=== PATIENT | female | born 1980 ===

== ENCOUNTER 2025-04-10 14:50 | Outpatient (AMB) | payer OTHER, SELFPAY ==
[2025-04-10 15:20] VITALS: BMI 32.6
--- NOTE | 2025-04-10 15:20 | A.PHYSOV ---
Vital Signs 04/10/25 15:20 Height 5 ft Weight 167 lb BMI 32.6 Intake Visit Reasons: Wants ordered lumbar and cervical injections Intake Note: Patient is a 44 year old female here for low back and neck pain for 2 months. 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 The neck pain is localized to the right side and radiates into the right arm in the C6 distribution, associated with moderate right foraminal stenosis at C5-6. The patient has not been on any blood thinners and has previously undergone an injection for lower back pain. The lower back pain radiates to the right leg in the L5 distribution, causing numbness and occasional immobility. The patient has experienced exacerbations following certain activities, with a history of MRI confirming the diagnosis. Patient has failed conservative treatment by completing physical therapy. She has a pain level today of 7/10. She is requesting epidural injection of her cervical and lumbar spine. Pain Description - Onset: Pain in neck and lower back, exacerbated by certain activities. - Quality: Neck pain radiates to the right arm; lower back pain radiates to the right leg with numbness. - Location: Right side of neck and lower back. - Radiation: Neck pain radiates to right arm; lower back pain radiates to right leg. - Exacerbating factors: Certain activities worsen the pain. - Relieving factors: Previous injection provided relief for lower back pain. [facility] Surgical History (Updated 04/10/25 @ 15:23 by Sandy John MA) History of knee replacement Social History (Updated 04/10/25 @ 15:24 by Sandy John MA) Alcohol intake: current Alcohol intake frequency: holidays/special occasions only Patient Tobacco Use Status: Never used Tobacco Use of substances other than those prescribed or required for medical reasons: No Current occupational status: employed Review of Systems Narrative Review of Systems - Musculoskeletal: Reports neck pain radiating to right arm and lower back pain radiating to right leg. - Neurological: Reports numbness in right leg. - General: Denies fever. Physical Exam Exam Exam: Physical Exam Cervical Spine: Examination of the cervical spine, she is tender to the right upper trapezius. She has full range of motion of the cervical spine with pain. Special Tests: Axial Compression test: Negative Spurlings test: Positive right Lhermitte's sign is Negative Upper Extremities: Full range of motion bilateral upper extremities. Equal siebel developer strength bilaterally. Neuro: Sensation: Intact to upper extremities bilateral to light touch Strength C5 (Elbow Flexion): 5/5 on the left and 5/5 on the right. C6 (Elbow Ext): 5/5 on the left and 5/5 on the right. C7 (Elbow Ext): 5/5 on the left and 5/5 on the right. C8 (Finger Flex): 5/5 on the left and 5/5 on the right. T1 (Finger Abd/Add): 5/5 on the left and 5/5 on the right. DTR: C5 (Biceps): Left 2 Right 2 C6 (Brachioradialis): Left 2 Right 2 C7 (Triceps): Left 2 Right 2 Roberts sign: Negative No pathologic clonus. No involuntary movement. Lumbar Spine: Examination of her lumbar spine, there is no visible swelling or deformity. She is tender to lower lumbar facets. She is otherwise nontender. Full range of motion of the lumbar spine. She does have an increase in pain with facet loading. Special Tests: Lhermittes sign was negative Heel Toe walk is normal Left straight leg raise: Negative Right straight leg raise: Negative Special tests Prateek test is negative Ganslen's test is negative SI Joint compression test negative Johana test negative Piriformis stretch is negative Lower Extremities: Full range of motion bilateral lower extremities. No calf pain or edema Neuro: Sensation: Intact to lower extremities bilaterally Strength L2 (Psoas): 5/5 on the left and 5/5 on the right. L3 (Quads): 5/5 on the left and 5/5 on the right. L4 (Ant tibialis): 5/5 on the left and 5/5 on the right. L5 (EHL) 5/5 on the left and 5/5 on the right. S1 (Gastroc): 5/5 on the left and 5/5 on the right. DTR L4: (Patellar) Left 2 Right 2 S1: (Achilles) Left 2 Right 2 Babinski Downgoing No pathologic clonus. No involuntary movement. Vital Signs: BMI result Body Mass Index 32.6 Assessment & Plan Assessment & Plan (1) Cervical radiculopathy: Code(s): M54.12 - Radiculopathy, cervical region Category: Medical (2) Lumbar radiculopathy: Code(s): M54.16 - Radiculopathy, lumbar region Category: Medical Plan Pain Management - Affect: Pain impacts daily activities, causing immobility at times. - Analgesia: Considering injections for pain relief; previous injection for lower back was effective. - Adverse Effects: None reported from previous injections. - Activities of Daily Living: Pain causes difficulty in movement, especially in the right leg. - Aberrant Drug Related Behaviors: None reported. Plan Patient was informed and verbally consented to the use of an ambient scribe for clinic note documentation during this visit. 1. 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 The patient will have the option for sedation during the procedure, and authorization will be obtained from insurance. We discussed the risks, complications and benefits of epidural steroidal injection. She is eager to proceed. 2. Lumbar Radiculopathy Due To Right L5 Nerve Compression An injection targeting the right L5 nerve will be scheduled to address the pain and numbness radiating to the right leg. The patient will discuss sedation options with the anesthesiologist, and insurance authorization will be pursued. In the meantime she will continue her home exercise plan and medications otherwise as prescribed. She has failed conservative treatment. Thank you for allowing me to participate in the care of your patient. Orders: Referrals Physiatry Procedure Notification M54.12 - Radiculopathy, cervical region Physiatry Procedure Notification M54.16 - Radiculopathy, lumbar region Coding Level of Care Code Tele Est Pt Level 4 (02076) Diagnoses Cervical radiculopathy M54.12 Lumbar radiculopathy M54.16
--- OUTSIDE RECORDS SUMMARY | 2025-04-10 18:36 | XMS_ITS ---
Author Name [facility] Organization Unknown History of Medication Use Medication Directions Dispensed Refills Start Date End Date [facility] hydroxyzine HCl 25 mg tablet Take 1 tablet 3 times a day by oral route. 04/13/2023 active pantoprazole 40 mg tablet,delayed release Take 1 tablet every day by oral route for 28 days. 02/25/2023 3 completed pantoprazole 40 mg tablet,delayed release Take 1 tablet every day by oral route for 28 days. 02/25/2023 3 completed hydroxyzine HCl 25 mg tablet TAKE 1 TABLET BY MOUTH THREE TIMES DAILY 4 active cefuroxime axetil 500 mg tablet TAKE 1 TABLET BY MOUTH TWICE DAILY FOR 7 DAYS 3 completed cefuroxime axetil 500 mg tablet TAKE 1 TABLET BY MOUTH TWICE DAILY FOR 7 DAYS 3 completed clindamycin HCl 300 mg capsule TAKE 1 CAPSULE BY MOUTH EVERY 6 HOURS FOR 7 DAYS 3 active clindamycin HCl 300 mg capsule TAKE 1 CAPSULE BY MOUTH EVERY 6 HOURS FOR 7 DAYS 3 completed diazepam 5 mg tablet 3 active diazepam 5 mg tablet 3 completed doxycycline monohydrate 100 mg tablet TAKE 1 TABLET BY MOUTH TWICE DAILY FOR 10 DAYS 3 completed doxycycline monohydrate 100 mg tablet TAKE 1 TABLET BY MOUTH TWICE DAILY FOR 10 DAYS 3 completed hydroxyzine HCl 50 mg tablet TAKE 1 TABLET BY MOUTH EVERY 6 HOURS FOR UP TO 7 DAYS NEEDED FOR ANXIETY 3 completed hydroxyzine HCl 50 mg tablet TAKE 1 TABLET BY MOUTH EVERY 6 HOURS FOR UP TO 7 DAYS NEEDED FOR ANXIETY 3 completed levofloxacin 500 mg tablet TAKE 1 TABLET BY MOUTH PRIOR TO SCHEDULED PROCEDURE 3 completed levofloxacin 500 mg tablet TAKE 1 TABLET BY MOUTH PRIOR TO SCHEDULED PROCEDURE 3 completed nabumetone 750 mg tablet TAKE 1 TABLET BY MOUTH TWICE DAILY 3 completed nabumetone 750 mg tablet TAKE 1 TABLET BY MOUTH TWICE DAILY 3 completed ondansetron 8 mg disintegrating tablet DISSOLVE 1 TABLET UNDER THE TONGUE EVERY 8 HOURS NEEDED FOR NAUSEA 3 active ondansetron 8 mg disintegrating tablet DISSOLVE 1 TABLET UNDER THE TONGUE EVERY 8 HOURS NEEDED FOR NAUSEA 3 completed oxycodone 5 mg tablet TAKE 1 TO 2 TABLETS BY MOUTH EVERY 4 TO 6 HOURS NEEDED FOR PAIN 3 completed oxycodone 5 mg tablet TAKE 1 TO 2 TABLETS BY MOUTH EVERY 4 TO 6 HOURS NEEDED FOR PAIN 3 completed Stimulant Laxative Plus 8.6 mg-50 mg tablet TAKE 1 TABLET BY MOUTH TWICE DAILY 3 completed Stimulant Laxative Plus 8.6 mg-50 mg tablet TAKE 1 TABLET BY MOUTH TWICE DAILY 3 completed aspirin 81 mg tablet,delayed release TAKE 1 TABLET BY MOUTH TWICE DAILY 3 completed acetaminophen 500 mg tablet TAKE 2 TABLETS BY MOUTH EVERY 8 HOURS. MAX OF 3000MG ACETAMINOPHEN PER DAY. active acetaminophen 500 mg tablet TAKE 2 TABLETS BY MOUTH EVERY 8 HOURS. MAX OF 3000MG ACETAMINOPHEN PER DAY. active aspirin 81 mg tablet,delayed release TAKE 1 TABLET BY MOUTH TWICE DAILY active butalbital-acetamino phen-caffeine 50 mg-325 mg-40 mg tablet active meloxicam 15 mg tablet TAKE 1 TABLET BY MOUTH EVERY DAY FOR 15 DAYS active meloxicam 15 mg tablet active methocarbamol 750 mg tablet TAKE 1 TABLET BY MOUTH THREE TIMES DAILY NEEDED FOR MUSCLE SPASMS active methocarbamol 750 mg tablet TAKE 1 TABLET BY MOUTH THREE TIMES DAILY NEEDED FOR MUSCLE SPASMS active mometasone 0.1 % topical ointment active mometasone 0.1 % topical ointment active Allergies Allergen Reaction Severity Comment Documented Date Source Statu s PENICILLAMINE [facility] SULFA (SULFONAMIDE ANTIBIOTICS) [facility] Problems Problem Status Onset Date Problem Type Date of Resoluti on Source Atopic dermatitis active 2023-04-13 ProblemAct [facility] Arthritis of knee active 2023-01-12 ProblemAct [facility] History of total knee arthroplasty active 2023-05-07 ProblemAct [facility] Post traumatic osteoarthritis active 2023-01-12 ProblemAct [facility] Encounters Encounter Type Encounter Reason Primary Diagnosis Location Date Ambulatory [facility] [place] 05/18/2023 Ambulatory [facility] [place] 05/17/2023 Ambulatory [facility] [place] 04/13/2023 Ambulatory [facility] [place] 04/12/2023 Ambulatory [facility] [place] 03/16/2023 Ambulatory [facility] [place] 03/15/2023 Ambulatory ROUTINE Post-traumatic osteoarthritis, unspecified site [facility] 03/02/2023 Ambulatory [facility] [place] 02/25/2023 Ambulatory [facility] [place] 02/22/2023 Ambulatory [facility] [place] 02/04/2023 Ambulatory [facility] [place] 01/12/2023 Ambulatory [facility] [place] 01/12/2023 Ambulatory [facility] [place] 01[facility]11/2023 Ambulatory [facility] [place] 01/11/2023 Ambulatory [facility] [place] 01/08/2023 Ambulatory [facility] [place] 12/16/2022 Ambulatory [facility] [place] 12/16/2022 Ambulatory [facility] [place] 12/16/2022 Ambulatory [facility] [place] 12/16/2022 Ambulatory [facility] [place] 12/16/2022 Ambulatory [facility] [place] 12/16/2022 Care Team Organization Name Specialty Phone Email Start Date End Da te [facility] 202203/02/2023 [facility] 2022
--- OUTSIDE RECORDS SUMMARY | 2025-04-10 18:36 | XMS_ITS | Clinical Summary ---
Author Organization [facility] Address [address] [address] Phone Care Team Providers Care Office Spec Name Role Phone Pcp, Unknown Primary Care Provider Unavailabl e Social History Tobacco Use Types Packs/Day Years Used Date Smoking Tobacco: Never Assessed Education Answer Date Recorded Are you interested in more education? Not on kaitlin e 09/11/2022 Are you concerned about learning? Not on file 09/11/2022 No 09/11/2022 No 09/11/2022 Digital Access Answer Date Recorded No 10/13/2022 No 10/13/2022 Reliable internet access at home? Not on file 10/13/2022 Device with a working camera? Not on file Comments Unknown Sex and Gender Information Value Date Recorded Sex Assigned at Not on file Legal Sex Female 3:45 PM EST Gender Identity Not on file Sexual Orientation Not on file Plan of Treatment Not on file Medical Devices Not on file Care Teams Office Spec Relationship Specialty Start Date End Date Pcp, Unknown PCP - General 03/24/20 Additional Source Comments The information contained in this document represents components of the legal health record. It is not the complete legal health record.[facility]
--- OUTSIDE RECORDS SUMMARY | 2025-04-10 18:36 | XMS_ITS | Clinical Summary ---
Author Organization [facility] Address [address] [place] [address] Phone Care Team Providers Care All Terrain Vehicle Technician Name Role Phone Mee Malone MD Primary Care Provider Allergies Active Allergy Reactions Criticality Noted Date Comments Penicillamine Hives 05/03/2024 Pollen Extracts Runny nose 02/24/2024 Itchy eyes and throat Sulfa (Sulfonamide Antibiotics) Hives Medium 05/11/2006 Medications gabapentin (NEURONTIN) 100 mg capsule Take 1 capsule (100 mg total) by mouth 3 (three) times a day. Active cetirizine (ZyrTEC) 10 mg tablet Take 1 tablet (10 mg total) by mouth 1 (one) time each day. Active mometasone (ELOCON) 0.1 % ointment Apply topically 1 (one) time each day. Active acetaminophen (TYLENOL) 500 mg tablet Take by mouth every 6 (six) hours if needed for mild pain (two tablets daily as needed). Active ibuprofen (ADVIL,MOTRIN) 200 mg tablet Take 1 tablet (200 mg total) by mouth every 6 (six) hours if needed. Active levonorgestreL (MIRENA) 21 mcg/24hr (up to 8 yrs) 52 mg IUD 1 Device (1 each total) by intrauterine route 1 (one) time. Active omeprazole (PriLOSEC) [address] capsule Take 1 capsule (20 mg total) by mouth 1 (one) time each day. Do not crush or chew. 30 each 11 09/21/192025 Active sertraline (ZOLOFT) 50 mg tablet Take 1/2 25 mg tab daily for 1 week then 1 tab 50 mg daily 30 each 1 09/21/19 Active Additional Information Patient not taking.Reported on 04/02/2025 butalbital-maryam taminophen-caf feine (Esgic) 50-325-40 mg per tabletIndicati ons:Chronic migraine with aura without status migrainosus, not intractable Take 1 tablet by mouth every 4 (four) hours if needed for headaches. 30 tablet 04/02/20 25 Active methocarbamoL (ROBAXIN) 750 mg tabletIndicati ons:Lumbar disc herniation,Lum bar spondylosis Take 1 tablet (750 mg total) by mouth 3 (three) times a day. 270 tablet 04/02/20 Active meloxicam (MOBIC) 15 mg tablet Take 1 tablet (15 mg total) by mouth 1 (one) time each day. 03/18/20 23 2024 Discontinued estradioL (ESTRACE) 1 mg tablet Take 1 tablet (1 mg total) by mouth 1 (one) time each day. 90 tablet 3 07/19/19 25 2024 Discontinued estradioL (CLIMARA) 0.0375 mg/[address] 1 patch on the skin 1 (one) time per week. 24 patch 3 09/01/19 25 2024 Discontinued(D iscontinued by another clinician) hydrOXYzine HCL (ATARAX) 25 mg tablet Take 1 tablet (25 mg total) by mouth every 6 (six) hours if needed for anxiety (6-8 hr for anxiety). 60 each 09/21/19 25 2024 Discontinued polyethylene glycol (Golytely) 236-22.74-6.74 -5.86 gram solution Take 4L by mouth once for one dose. May substitue any PEG. Starting at 6PM the night before your procedure drink 1 8oz glasses at your own pace until you complete half of the gallon. Finish 2nd half of the gallon 5 hours before your procedure. 4000 mL 10/04/19 25 2024 Discontinued(T herapy completed) bisacodyL (DULCOLAX) 5 mg EC tablet Take 2 tablets by mouth right before beginning bowel prep. See instructions provided by the office 2 tablet 10/04/19 25 2024 Discontinued(T herapy completed) methocarbamoL (ROBAXIN) 750 mg tablet Take 1 tablet (750 mg total) by mouth 3 (three) times a day. 270 tablet 02/07/202024 Discontinued(R eorder) butalbital-maryam taminophen-caf feine (Esgic) 50-325-40 mg per tablet Take 1 tablet by mouth every 4 (four) hours if needed for headaches. 30 tablet 02/07/202024 Discontinued(R eorder) Active Problems Problem Noted Date Diagnosed Date Colon cancer screening 10/19/2024 Overview (10/19/2024): 11/08---10 yrs History of total knee arthroplasty 05/07/2023 Atopic dermatitis 04/13/2023 Arthritis of knee 01/12/2023 Post-traumatic osteoarthritis 01/12/2023 Lumbar disc herniation 06/17/2021 Lymphadenopathy of head and neck 07/27/2020 Lumbar spondylosis 12/09/2018 Tobacco use disorder 10/05/2014 Anxiety 08/10/2008 Encounters Date Type Department Care Team Description 04/02/2025 10:30 AM EST Office Visit Adult Medicine [facility] [address] [place] [phone] Tiffany Jorge NP Anxiety (Primary Dx); Lumbar disc herniation; Lumbar spondylosis; Skin lesion; Chronic migraine with aura without status migrainosus, not intractable; Encounter for screening mammogram for breast cancer 01/12/2025 Telephone Adult Medicine - [place] [address] [place] [address] Mee Malone MD from Last 3 Months Immunizations Immunization Administration Dates Next Due H1N1 Inj Preservative Free 04/04/2009 Influenza Quadravalent, MDCK , 0.5ml, preservative free (Flucelvax) 6mo and older 05/07/2023,06/12/2021,02/14/2020,2018 Influenza trivalent, with preservative (Fluzone; Afluria) 6mo and older 05/08/2015,04/14/2012,01/30/2009,2006 Td Tetanus diptheria (Tdvax) 7yo and older 05/11/2006 Tdap Tetanus diptheria acell ular pertussis (Boostrix; Adacel) 7yo and older 03/31/2019 Surgical History Surgery Date Site/Laterality Comments ANTERIOR CRUCIATE LIGAMENT REPAIR 1994 Right PROCEDURE:ANTERIOR CRUCIATE LIGAMENT REPAIR LIP RECONSTRUCTION 02/18/2022 PROCEDURE:LIP RECONSTRUCTION;COMMENT:dog bit lower lip with reconstructive surgery TONSILLECTOMY 1983 PROCEDURE:TONSILLECTOMY OTHER SURGICAL HISTORY PROCEDURE: OR UNLISTED PROCEDURE PHARYNX ADENOIDS/TONSILS; COMMENT: at age 5/removal of gland in throat TONSILLECTOMY PROCEDURE: HISTORICAL TONSILLECTOMY KNEE SURGERY 1993 PROCEDURE: HISTORICAL KNEE SURGERY; COMMENT: right knee/ACL Medical History Medical History Date Comments Osteoarthritis DX:Osteoarthriti s History of migraine DX:History o f migraine History of gastroesophageal reflux (GERD) DX:History of gastroesophage al reflux (GERD) Depressive disorder, not els ewhere classified 1991 DX:Depressive disorder, not elsewhere classified; COMMENT: Rx'd with Zoloft Historical Medical DX 12/19 DX:Encount er for insertion or removal of intrauterine contraceptive device; COMMENT: Mirena, due for removal 01/03/2010 Historical Medical DX 09/12/07 DX:HPV (hu man papillomavirus); COMMENT: Pap= ASCUS w/ HRHPV Anxiety 08/10/08 DX:Anxiety Lumbar spondylosis 12/09/2018 DX:Lumbar spo ndylosis Family History Medical History Relation Name Comments Breast cancer Aunt paternal aunt (> 50 for sure) Asthma Brother 1 Damien COPD Father Hypertension Father Other: Father prediabetes Diabetes Maternal Grandfather Colon C A age 75, prostate CA Breast cancer Maternal Grandmother Cancer Mother lung Lung cancer Mother diead age 56, s moker Liver cancer Paternal Grandfather Breast cancer Paternal Grandmother bladde r CA (nonsmoker) (definitely under age 50) Cancer of Small Bowel Neg Hx Colon cancer Neg Hx Kidney cancer Neg Hx Ovarian cancer Neg Hx Pancreatic cancer Neg Hx Uterine cancer Neg Hx Relation Name Status Comments Aunt Brother 1 Damien Alive Brother 2 Alive Father Alive Maternal Grandfather Maternal Grandmother Alive Mother (Age 56) Paternal Grandfather Paternal Grandmother 1987 li graham cancer Son 1 Alive Son 2 Alive Son 3 Alive Social History Tobacco Use Types Packs/Day Years Used Date Smoking Tobacco: Former Cigarettes 1 25 0 05/17/1994 - 05/17/2019 Smokeless Tobacco: Never Alcohol Use Standard Drinks/Week Comments Yes 2 (1 standard drink = 0.6 oz pur e alcohol) Housing Instability Answer Date Recorde d Are you worried that in the next 2 months you may not have stable housing? No 05/04/2024 Food Access & Nutrition Answer Date Rec orded Do you have access to a vari ety of food including fruits and vegetables? Yes 05/04/2024 Access to Healthcare Answer Date Record ed Within the last 3 months, ho w many times did you visit the emergency department for your medical care? 0 05/04/2024 Health Literacy Answer Date Recorded How often do you need to hav e someone help you when you read instructions, pamphlets, or other written material from your doctor or pharmacy? Never 05/04/2024 Caregiver: How often do you need to have someone help you when you read instructions, pamphlets, or other written material from your doctor or pharmacy? Not on file 05/04/2024 Financial Risk Answer Date Recorded How hard is it for you to pa y for the very basics like food, housing, medical care, and air conditioning / heating? Somewhat hard 05/04/2024 Transportation Answer Date Recorded Has the lack of transportati on kept you from meetings, work, or from getting things needed for daily living? No Has the lack of transportati on kept you from medical appointments or from getting medications? No 05/04/2024 Social Isolation Answer Date Recorded How often do you feel lonely or isolated from th ose around you? Never 05/04/2024 Food Risk Answer Date Recorded Within the past 12 months we worried whether our food would run out before we got money to buy more. Never true 05/04/2024 Within the past 12 months th e food we bought just didn't last and we didn't have money to get more. Never true 05/04/2024 Dependent Care Answer Date Recorded Do you need help finding or paying for care for your loved ones. For example, child and family therapist or elderly care for an older adult? No 05/04/2024 Education Answer Date Recorded Do you think completing more education or training, like finishing a GED, going to college, or learning a trade, would be helpful for you? Yes 05/04/2024 Employment and Income Answer Date Recor ded During the last four weeks, have you been actively looking for work? No 05/04/2024 Living Situation Answer Date Recorded What is your living situation? Unrecognized valu e 05/04/2024 Comments No Sex and Gender Information Value Date Recorded Sex Assigned at Not on file Legal Sex Female 10:24 AM EST Gender Identity Not on file Sexual Orientation Not on file Obstetrics History Para Term AB IAB SAB Ectopic Multiple Livin g Live Births 3 Last Filed Vital Signs Vital Sign Reading Time Taken Comments Blood Pressure 116/82 04/02/2025 10:43 AM EST Pulse 72 04/02/2025 10:43 AM EST Temperature 36.8 C (98.2 F) 04/02/2025 10:43 AM EST Respiratory Rate - - Oxygen Saturation 98% 05/09/2024 8:38 AM EST Inhaled Oxygen Concentration - - Weight 77.6 kg (171 lb) 04/02/2025 10:43 AM EST Height 152.4 cm (5') 04/02/2025 10:43 AM EST Body Mass Index 33.4 04/02/2025 10:43 AM EST Plan of Treatment Upcoming Encounters Date Type Department Care Team (Late st Contact Info) Description 04/16/2025 3:30 PM EST [facility]ointment [facility] [address] [phone] Health Maintenance Due Date Last Done Comments Hepatitis B Vaccines (1 of 3 - 19+ 3-dose series) 1997 Hepatitis C Screening 04/25/2022 COVID-19 Vaccine ( season) 2025 05/14/2021, 04/24/2021, 06/08/2020, Additional history exists Influenza Vaccine (#1) 2025 , 06/12/2021, 02/14/2020, Additional history exists Social Influencers of Health Screening 05/04/2025 05/04/2024 Breast Cancer Screening 03/20/2026 03/20/20 24, 03/01/2023, 02/25/2022, Additional history exists Cervical Cancer Screening: HPV 07/18/2029 07/18/2024, 02/04/2018 Cholesterol Screening (Lipid Panel) 09/20/2029 09/20/2024, 07/20/2022 DTaP,Tdap,and Td Vaccines (4 - Td or Tdap) 02/19/2032 02/18/2022, 03/31/2019, 05/11/2006 Colorectal Cancer Screening: Colonoscopy 10/17/2034 10/17/2024, 10/17/2024 RSV Immunization Adult Patients (1 - 1-dose 75+ series) 2053 HIV Screening Completed 02/14/2004 Depression Screening Completed 04/02/2025 HIB Vaccines Aged Out No longer eligi ble based on patient's age to complete this topic HPV Vaccines Aged Out No longer eligi ble based on patient's age to complete this topic Hepatitis A Vaccines Aged Out No long er eligible based on patient's age to complete this topic IPV Vaccines Aged Out No longer eligi ble based on patient's age to complete this topic MMR Vaccines Aged Out No longer eligi ble based on patient's age to complete this topic Meningococcal ACWY Vaccine Aged Out N o longer eligible based on patient's age to complete this topic Meningococcal B Vaccine Aged Out No l onger eligible based on patient's age to complete this topic Pneumococcal Vaccine: Pediatrics (0 to 5 Years) and At-Risk Patients (6 to 49 Years) Aged Out No longer eligible based on patient's age to complete this topic RSV Immunization Patients Under 20 months Aged Out No longer eligible based on patient's age to complete this topic Varicella Vaccines Aged Out No longer eligible based on patient's age to complete this topic Procedures Procedure Name Priority Date/Time Associated Diagnosis Comments EXTERNAL COLONOSCOPY REPORT 10/17/2024 LIPID PANEL WITH REFLEX TO DIRECT LDL Routine 09/20/2024 10:17 AM EDT Adult general medical examination HPV WITH REFLEX GENOTYPE Routine 07/18/2024 3:28 PM EST Encounter for annual physical examination excluding gynecological examination in a patient older than 17 years MG MAMMO DIGITAL SCREENING W RAFITA BILAT Routine 03/20/2024 1:16 PM EST Encounter for screening mammogram for breast cancer HM HIV SCREENING Routine 02/14/2004 from Last 3 Months or Most Recently Relevant to Health Maintenance Results * External Colonoscopy Report (10/17/2024) Anatomical Region Laterality Modality Endoscopy us Provider [facility]~PROCEDURE ORDERABLES Final Result * (ABNORMAL) Lipid panel with reflex to direct LDL (09/20/2024 10:17 AM EDT) Cholesterol 249(H) 0 - 200 mg/dL LAB CHEMISTRY METHOD 09/20/2024 12:34 PM EDT [facility] Triglycerides 190(H) 0 - 150 mg/dL LAB CHEMISTRY METHOD 09/20/2024 12:34 PM EDT [facility] HDL 61 >=40 mg/dL LAB CHEMISTRY METHOD 09/20/2024 12:34 PM EDT [facility] LDL Calculated 150(H) 0 - 100 mg/dL LAB CHEMISTRY METHOD 09/20/2024 12:34 PM EDT [facility] VLDL Cholesterol Spencer 38 mg/dL LAB CHEMISTRY METHOD 09/20/2024 12:34 PM EDT [facility] Non HDL Chol. (LDL+VLDL) 188(H) <145 mg/dL LAB CHEMISTRY METHOD 09/20/2024 12:34 PM EDT [facility] Chol/HDL Ratio 4.1 0.0 - 4.4 LAB CHEMISTRY METHOD 09/20/2024 12:34 PM EDT [facility] Blood Venous blood specimen / Unknown Venipuncture / Unknown 09/20/2024 10:17 AM EDT 09/20/2024 10:17 AM EDT us Tiffany Jorge NP LAB BLOOD ORDERABLES Final Res ult [facility] [address] [place] [address], [place] [phone] * HPV with reflex genotype (07/18/2024 3:28 PM EST) HPV Negative Negative LAB MICROBIOLOGY METHOD 07/19/2024 3:03 PM EST [facility] Brushing Cervix uteri structure / Unknown 07/18/2024 3:28 PM EST 07/19/2024 6:04 AM EST Anjali Smallwood [facility] MOLECULAR DIAGNOSTICS ORD ERABLES Final Result [facility] [address] [place] [address], * MG Mammo Digital Screening w Rafita bilat (03/20/2024 1:16 PM EST) Anatomical Region Laterality Modality Breast Bilateral Mammography 05/11/2024 7:35 AM EST Impressions 05/11/2024 7:41 AM EST No mammographic evidence of malignancy. A negative mammogram in the presence of a clinically suspicious palpable abnormality does not preclude the possibility of malignancy or alter the indications for biopsy. PQRI CPT II 3342F Code 73820, 43377 PQRI 225 CPT II 7025F TISSUE DENSITY: There are scattered areas of fibroglandular density. (BI-RADS category B) IMPRESSION: Benign. BI-RADS CATEGORY: 2 - BENIGN RECOMMENDATION: Screening bilateral mammogram is recommended in 1 year. Mammo Location: [facility], [address] [place] [id number] -------- FINAL REPORT -------- Dictated By: Mikel Dotson Dictated Date: 05/11/2024 07:35 ET Assigned Physician: Mikel Dotson Reviewed and Electronically Signed By: Mikel Dotson Signed Date: 05/11/2024 07:41 ET Workstation ID: [id number] Transcribed By: Self Edit Transcribed Date: 05/11/2024 07:35 ET Narrative 05/11/2024 7:41 AM EST CLINICAL: The patient is a 43 years Female presenting for routine screening mammography. This examination, performed 03/20/2024 is not interpreted until today, 05/11/2024, so that previous outside studies could be obtained. COMPARISON: 07/17/2020 (unilateral right mammogram) and 02/19/2020 (bilateral mammography). TECHNIQUE: Full-field digital mammography of the breasts bilaterally consisting of tomosynthesis in MLO and CC projection is performed in the [employer]ocket[employer] 2000-D unit. Computer aided detection utilizing the iCAD system was utilized. FINDINGS: The breasts are composed of a combination of fatty and fibroglandular elements. Bilateral nodular densities with appearance consistent with benign intramammary lymph nodes are noted. There is no suspicious cluster of microcalcifications, mass, or area of architectural distortion. There is no skin thickening or nipple retraction. Procedure Note Mikel Dotson MD - 05/11/2024 CLINICAL: The patient is a 43 years Female presenting for routinescreening mammography. This examination, performed 03/20/2024 is notinterpreted until today, 05/11/2024, so that previous outside studiescould be obtained. COMPARISON: 07/17/2020 (unilateral right mammogram) and 02/19/2020 (bilateralmammography). TECHNIQUE: Full-field digital mammography of the breasts bilaterallyconsisting of tomosynthesis in MLO and CC projection is performed in the[employer] 2000-D unit. Computer aided detection utilizing the iCADsystem was utilized. FINDINGS: The breasts are composed of a combination of fatty andfibroglandular elements. Bilateral nodular densities with appearanceconsistent with benign intramammary lymph nodes are noted. There is nosuspicious cluster of microcalcifications, mass, or area of architecturaldistortion. There is no skin thickening or nipple retraction. IMPRESSION: No mammographic evidence of malignancy. A negative mammogram in the presence of a clinically suspicious palpableabnormality does not preclude the possibility of malignancy or alter theindications for biopsy. PQRI CPT II 3342F Code 49212, 89804 PQRI 225 CPT II 7025F TISSUE DENSITY: There are scattered areas of fibroglandular density.(BI-RADS category B) IMPRESSION: Benign. BI-RADS CATEGORY: 2 - BENIGN RECOMMENDATION: Screening bilateral mammogram is recommended in 1 year. Mammo Location: [facility], [address] [place] [id number] -------- FINAL REPORT -------- Dictated By: Mikel Dotson Dictated Date: 05/11/2024 07:35 ET Assigned Physician: Mikel Dotson Reviewed and Electronically Signed By: Mikel Dotson Signed Date: 05/11/2024 07:41 ET Workstation ID: [id number] Transcribed By: Self Edit Transcribed Date: 05/11/2024 07:35 ET us Self Referral Sppl IMG BI PROCEDURES Final Resul t * Hm HIV Screening (02/14/2004) HIV Screening Abstracted us Historical Provider HEALTH MAINTENANCE Final Result from Last 3 Months or Most Recently Relevant to Health Maintenance Insurance [facility] Care Teams All Terrain Vehicle Technician Relationship Specialty Start Date End Date Mee Malone MD [address] [place] [phone] PCP - General 07/15/1998
--- OUTSIDE RECORDS SUMMARY | 2025-04-10 18:36 | XMS_ITS | Clinical Summary ---
Author Organization [facility] Address [address] [address] Phone Care Team Providers Care Recruiter Coordinator Name Role Phone Tiffany Jorge Primary Care Provider [phone] Allergies Active Allergy Reactions Criticality Noted Date Comments Penicillamine 05/03/2024 Penicillins Hives Medium 05/11/2006 Childhood No difficulty breathing Sulfa Antibiotics Hives Medium 05/11/2006 Medications omeprazole (PriLOSEC) [address] capsule Take 20 mg by mouth in the morning. 5 09/21/19 26 Active methocarbamol (ROBAXIN) 750 MG tablet TAKE 1 TABLET BY MOUTH THREE TIMES DAILY NEEDED FOR MUSCLE SPASMS 3 Active cetirizine (ZyrTEC) 10 MG tablet Take 10 mg by mouth in the morning. Active ibuprofen (ADVIL,MOTRIN) 200 MG tablet Take 200 mg by mouth every 6 hours as needed Active acetaminophen (TYLENOL) 500 MG tablet TAKE 2 TABLETS BY MOUTH EVERY 8 HOURS. MAX OF 3000MG ACETAMINOPHEN PER DAY. Active butalbital-maryam taminophen-caf feine (FIORICET, ESGIC) 50-325-40 MG per tablet if needed 3 Active Active Problems Problem Noted Date Diagnosed Date Atrophy of kidney 01/10/2025 History of total knee arthroplasty 05/07/2023 Atopic dermatitis 04/13/2023 Post-traumatic osteoarthritis 01/12/2023 Arthritis of knee 01/12/2023 Prolapsed lumbar intervertebral disc 06/17/2021 Head and neck lymphadenopathy 07/27/2020 Lumbar spondylosis 12/09/2018 Family history of malignant neoplasm of breast 0 10/05/2014 Anxiety 08/10/2008 Encounters Date Type Department Care Team Description 01/09/2025 4:15 PM EDT Office Visit [facility] [address] [place] [phone] Adonay Claudio MD Atrophy of kidney (Primary Dx) from Last 3 Months Immunizations Immunization Administration Dates Next Due H1N1 Inj Preservative Free 04/04/2009 Influenza (IM) Preservative Free 015,04/14/2012,01/30/2009, 7 Influenza, MDCK, PF, Quadrivalent 2022,06/12/2021,02/14/2020, 9 Moderna SARS-COV-2 04/24/2021 Pfizer SARS-COV-2 06/08/2020,05/18/2020 Td 05/11/2006 Tdap 03/31/2019 Family History Relation Status Comments Father Alive Mother Social History Tobacco Use Types Packs/Day Years Used Date Smoking Tobacco: Never Alcohol Use Standard Drinks/Week Comments Yes 0 (1 standard drink = 0.6 oz pur e alcohol) Comments Unknown Sex and Gender Information Value Date Recorded Sex Assigned at Not on file Legal Sex Female 12:36 PM EDT Gender Identity Not on file Sexual Orientation Not on file Last Filed Vital Signs Vital Sign Reading Time Taken Comments Blood Pressure 110/70 01/09/2025 4:31 PM EDT Pulse 77 01/09/2025 4:31 PM EDT Temperature - - Respiratory Rate - - Oxygen Saturation 98% 01/09/2025 4:31 PM EDT Inhaled Oxygen Concentration - - Weight 75.7 kg (166 lb 12.8 oz) 01/09/2025 4:31 PM EDT Height - - Body Mass Index - - Plan of Treatment Health Maintenance Due Date Last Done Comments Hepatitis B Vaccine (1 of 3 - 19+ 3-dose series) 1997 Pneumococcal Vaccine: Peds ( 0 to 5 Years) and At-Risk Patients (6 to 49 Years) (1 of 2 - PCV) 1997 Influenza Vaccine (#1) 2025 3, 06/12/2021, 02/14/2020, Additional history exists Insurance [facility] Care Teams Recruiter Coordinator Relationship Specialty Start Date End Date Tiffany Jorge [address] [place] [id number] PCP - General 12/19/24
--- OUTSIDE RECORDS SUMMARY | 2025-04-10 18:36 | XMS_ITS | Clinical Summary ---
Author Organization [facility] Address [address] [place] [address] Care Team Providers Care Environmental Engineering Technician Name Role Phone Joel Malone MD Primary Care Provider [phone] Allergies Active Allergy Reactions Criticality Noted Date Comments Penicillins Hives Medium 07/25/2020 Childhood No difficulty breathing Sulfa Antibiotics Hives Medium 02/17/2023 Medications Medication Sig Dispensed Refills Start Date End Date Status ibuprofen (ADVIL,MOTRIN) 200 MG tablet Take 1 tablet (200 mg total) by mouth every 6 (six) hours as needed for pain. 0 Active methocarbamol (ROBAXIN) 750 MG tablet Take 1 tablet (750 mg total) by mouth 4 (four) times a day. 0 Active levonorgestrel (MIRENA) 20 MCG/24HR IUD 1 each by Intrauterine route once. 0 Active Active Problems Problem Noted Date Diagnosed Date Lymphadenopathy of head and neck 07/27/2020 Family History Medical History Relation Name Comments Asthma Brother Damien COPD Father Twan Hypertension Father Twan Other Father Twan prediabetes Cancer Mother Thalia lung Relation Name Status Comments Brother Damien Alive Father Twan Alive Mother Thalia Social History Tobacco Use Types Packs/Day Years Used Date Smoking Tobacco: Former Cigarettes 1 15 2019 Smokeless Tobacco: Never Alcohol Use Standard Drinks/Week Comments Yes 2 (1 standard drink = 0.6 oz pur e alcohol) a couple times a week Sex and Gender Information Value Date Recorded Sex Assigned at Not on file Gender Identity Not on file Sexual Orientation Not on file Job Start Date Occupation Industry Not on file Not on file Not on file Last Filed Vital Signs Vital Sign Reading Time Taken Comments Blood Pressure 129/89 02/17/2023 10:46 AM EDT Pulse 59 02/17/2023 10:46 AM EDT Temperature 35.8 C (96.4 F) 02/17/2023 10:46 AM EDT Respiratory Rate 16 02/17/2023 10:46 AM EDT Oxygen Saturation 100% 02/17/2023 10:46 AM EDT Inhaled Oxygen Concentration - - Weight 69.9 kg (154 lb) 02/17/2023 10:46 AM EDT Height 153 cm (5' 0.24 ) 02/17/2023 10:46 AM EDT Body Mass Index 29.84 02/17/2023 10:46 AM EDT Plan of Treatment Health Maintenance Due Date Last Done Comments Hepatitis B Vaccines (1 of 3 - 3-dose series) 1978 Hepatitis C Screening 1978 Depression Screening 1990 BMI Counseling 1996 Preventative Health Evaluation 1996 Cervical Cancer Screening (Pap Smear) 1999 Colon Cancer Screening (Colonoscopy) 2023 COVID-19 Vaccine ( season) 2025 06/08/2020, 05/18/2020 Influenza Vaccine (#1) 2025 2, 02/14/2020, 03/31/2019, Additional history exists DTap / Tdap / Td (2 - Td or Tdap) 03/31/2029 03/31/2019 Pneumococcal Vaccine Aged Out No long er eligible based on patient's age to complete this topic RSV Ped < 20 months Aged Out No longe r eligible based on patient's age to complete this topic Care Teams Environmental Engineering Technician Relationship Specialty Start Date End Date Joel Malone MD PCP - General Cad Designer 07/25/20
== END 2025-04-10 16:44 | disposition home or self-care (01) ==
PROVIDERS: PCP Pediatrics; Visit Provider Physician Assistant
DX: M54.12 Radiculopathy, cervical region (principal); M54.16 Radiculopathy, lumbar region
CPT/HCPCS: 99214

== ENCOUNTER → 2025-04-10 14:50 | Outpatient (BNVA) | payer OTHER, SELFPAY | PROVIDERS: PCP Pediatrics; Visit Provider Physician Assistant | DX: M54.12 Radiculopathy, cervical region (principal); M54.16 Radiculopathy, lumbar region; M48.02 Spinal stenosis, cervical region | CPT/HCPCS: 99212 ==